=== PATIENT | female | born 1985 | race Caucasian/White ===

== ENCOUNTER 2018-06-29 19:02 | Emergency (ER) | payer SELFPAY ==
[~2018-06-29] VITALS: Ht 167.6 cm; Wt 61.5 kg
[2018-06-29] MEDS ORDERED: DIPH,PERTUSS(ACELL),TET VAC/PF 0.5 ML IM-VACC ONE ×2 (19:48→20:00)
[2018-06-29] MEDS ORDERED: LIDOCAINE-MPF 1%, 5ML INFIL ONE (20:00)
[2018-06-29 21:45] VITALS: BP 139/93
== END 2018-06-29 21:56 | disposition home or self-care (01) ==
LOC: ED 20:28
DX: S01.312A Laceration without foreign body of left ear, initial encounter (principal); S00.472A Other superficial bite of left ear, initial encounter; W54.0XXA Bitten by dog, initial encounter; Y93.89 Activity, other specified; Y92.89 Other specified places as the place of occurrence of the external cause; Y99.8 Other external cause status
CPT/HCPCS: 12051; 90471; 90715